=== PATIENT | female | born 1980 | race Caucasian/White ===

== ENCOUNTER → 2020-02-26 | Outpatient (CLI) | payer OTHER ==
[2020-02-27 15:19] LABS: Adenovirus F 40/41 Not Detected (NOT DETECT); Astrovirus Not Detected (NOT DETECT); Campylobacter Sp Detected (NOT DETECT); Cryptosporidium Not Detected (NOT DETECT); Cyclospora Cayetanensis Not Detected (NOT DETECT); E. Coli O157 Not Detected (NOT DETECT); Entamoeba Histolytica Not Detected (NOT DETECT); Enteroaggregative E. coli-EAEC Not Detected (NOT DETECT); Enteropathogenic E. coli-EPEC Not Detected (NOT DETECT); Enterotoxigenic E. coli-ETEC Not Detected (NOT DETECT); Giardia Lamblia Not Detected (NOT DETECT); Norovirus GI/GII Not Detected (NOT DETECT); Plesiomonas Shigelloides Not Detected (NOT DETECT); Rotavirus A Not Detected (NOT DETECT); Salmonella Sp Not Detected (NOT DETECT); Sapovirus Not Detected (NOT DETECT); Shiga Toxin-prod E. coli-STEC Not Detected (NOT DETECT); Shigella/Enteroin E. coli-EIEC Not Detected (NOT DETECT); Vibrio Cholerae Not Detected (NOT DETECT); Vibrio Sp Not Detected (NOT DETECT); Yersinia Enterocolitica Not Detected (NOT DETECT)
== END | disposition home or self-care (01) ==
LOC: LAB 12:27 → LAB SHORT 12:27
PROVIDERS: Physician Assistant
DX: R10.13 Epigastric pain (principal)
CPT/HCPCS: 0097U; 87177; 87209; 87338

== ENCOUNTER → 2020-02-27 | Outpatient (CLI) | payer OTHER ==
[2020-02-27 13:46] LABS: Anion Gap 7 mmol/L (6-16); Blood Urea Nitrogen 14 mg/dL (8-24); Bun/Creatinine Ratio 21.3 (12.0-20.0); CO2, Blood 25 mmol/L (21-32); Calcium, Blood 8.2 mg/dL (8.5-10.1); Chloride, Blood 107 mmol/L (98-108); Creatinine, Blood 0.66 mg/dL (0.40-1.00); Glomerular Filtration Rate >60 (60-); Glucose, Blood 103 mg/dL (70-99); Potassium, Blood 4.1 mmol/L (3.5-5.5); Sodium, Blood 139 mmol/L (136-145)
== END | disposition home or self-care (01) ==
LOC: LAB SHORT 12:25 → LAB 12:25
PROVIDERS: Physician Assistant
DX: E87.6 Hypokalemia (principal)
CPT/HCPCS: 80048

== ENCOUNTER 2020-09-25 12:46 | Day surgery (SDC) | payer OTHER ==
[2020-09-24 10:02] LABS: BASOPHILS ABSOLUTE AUTO 0.04 K/mm3 (0.00-0.23); BASOPHILS PERCENT AUTO 0 % (0-2); EOSINOPHILS ABSOLUTE AUTO 0.01 K/mm3 (0.00-0.68); EOSINOPHILS PERCENT AUTO 0 % (0-6); Hematocrit 39.2 % (33.0-51.0); IMMATURE GRAN ABSOLUTE AUTO 0.03 K/mm3 (0.00-0.10); IMMATURE GRAN PERCENT AUTO 0 % (0-1); LYMPHOCYTES ABSOLUTE AUTO 2.56 K/mm3 (0.84-5.20); LYMPHOCYTES PERCENT AUTO 26 % (21-46); MONOCYTES ABSOLUTE AUTO 0.48 K/mm3 (0.16-1.47); MONOCYTES PERCENT AUTO 5 % (4-13); Mean Corpuscular HGB 26.3 pg (26.0-34.0); Mean Corpuscular HGB Conc 30.6 g/dL (31.5-36.5); Mean Corpuscular Volume 86 fL (80-100); Mean Platelet Volume 9.8 fL (9.1-12.4); NEUTROPHILS ABSOLUTE AUTO 6.81 K/mm3 (1.96-9.15); NEUTROPHILS PERCENT AUTO 69 % (41-73); Platelet Count 371 K/mm3 (150-400); RDW Coefficient Variation 14.2 % (11.7-14.2); Red Blood Cell Count 4.56 M/mm3 (3.80-5.20); White Blood Cell Count 9.93 K/mm3 (4.00-11.30)
[~2020-09-25] VITALS: Ht 160 cm; Wt 75.4 kg
[~2020-09-25 12:46] MED LIST: DESI25 PO; OMEP20ER; PROM12.5S
--- NOTE | 2020-09-25 13:59 | NUR ---
Ambulatory in Day Surgery History, Chart, Medications and Allergies reviewed before start of procedure. Lungs clear T/O to Auscultation. Pre-Op teaching done. Pt verbalizes understanding.
--- NOTE | 2020-09-25 18:53 | NUR ---
arrival to unit PT ARRIVED TO UNIT AT APPROX 1820 FROM [facility]. PT SLID TO BED USING SLID SHEET. PT [id number]. SATS >95% ON RA. 4 LAP SITES CDI, SLIGHT REDNESS AROUND. ORQUIDEA PAD IN PLACE, NO DISCHARGE SEEN. PT TOLERATING PO WITH NO NAUSEA. GIVEN PO PAIN MEDS WITH ZOFRAN. WILL HAND OFF TO ONCOMING NURSE.
--- NOTE | 2020-09-26 04:35 | NUR ---
SHIFT SUMMARY PT IS A/O X4. AMBULATING WITH SBA; HAS AMBULATED IN HALLWAY THIS SHIFT. TOLERATING PO INTAKE. HAS HAD SOME NAUSEA OVERNIGHT; MED PRN. PAIN MANAGED WITH NORCO AND DILAUDED FOR BREAKTHROUGH PAIN PRN. PT HAS HAD MINIMAL BLEEDING OVERNIGHT. ORQUIDEA PAD IN PLACE. HEAT PAD PROVIDED FOR COMFORT. IV FLUIDS INFUSING PER ORDERS OVERNIGHT. WELLINGTON IN PLACE, PATENT, STAT LOCK ON OVERNIGHT. PT RESTING IN BED WITH CALL LIGHT IN REACH.
[2020-09-26 05:13] LABS: BASOPHILS ABSOLUTE AUTO 0.01 K/mm3 (0.00-0.23); BASOPHILS PERCENT AUTO 0 % (0-2); EOSINOPHILS PERCENT AUTO 0 % (0-6); Hematocrit 39.2 % (33.0-51.0); Hemoglobin 12.5 g/dL (11.5-16.0); IMMATURE GRAN ABSOLUTE AUTO 0.03 K/mm3 (0.00-0.10); IMMATURE GRAN PERCENT AUTO 0 % (0-1); LYMPHOCYTES ABSOLUTE AUTO 1.63 K/mm3 (0.84-5.20); LYMPHOCYTES PERCENT AUTO 15 % (21-46); MONOCYTES ABSOLUTE AUTO 0.64 K/mm3 (0.16-1.47); MONOCYTES PERCENT AUTO 6 % (4-13); Mean Corpuscular HGB 27.3 pg (26.0-34.0); Mean Corpuscular HGB Conc 31.9 g/dL (31.5-36.5); Mean Corpuscular Volume 86 fL (80-100); Mean Platelet Volume 9.6 fL (9.1-12.4); NEUTROPHILS ABSOLUTE AUTO 8.81 K/mm3 (1.96-9.15); NEUTROPHILS PERCENT AUTO 79 % (41-73); Platelet Count 377 K/mm3 (150-400); RDW Coefficient Variation 14.5 % (11.7-14.2); RDW Standard Deviation 44.8 fL (35.1-46.3); Red Blood Cell Count 4.58 M/mm3 (3.80-5.20); White Blood Cell Count 11.12 K/mm3 (4.00-11.30)
--- NOTE | 2020-09-26 06:35 | NUR ---
ELIZ RANGEL'Raymundo AT [id number].
--- NOTE | 2020-09-26 07:50 | NUR ---
pt oob to bathroom to void no hat on bathroom pt stated no difficulty scant vag bleeding no flatus pt has small amt of bruising to dermabond sites
--- NOTE | 2020-09-26 12:16 | NUR ---
wonderly by to see pt ok to discharge home
[2020-09-26] MEDS ORDERED: IBU800 MG PO (12:25)
[2020-09-26] MEDS ORDERED: HYDROCODONE-AC1 EA10 PO (12:25)
[2020-09-26] MEDS ORDERED: PROM25 PO (12:27)
[2020-09-26] MEDS ORDERED: DOCU100 PO (12:27)
[2020-09-26] MEDS ORDERED: DULCOLAX400 MG/51 PO (12:28)
--- NOTE | 2020-09-26 13:47 | NUR ---
wc escort to car no acute changes rx given
== END 2020-09-26 13:45 | disposition home or self-care (01) ==
LOC: ORSCMMR 12:46 → SURS 18:09
PROVIDERS: Obstetrics & Gynecology
PROC: 0UT94ZZ Resection of Uterus, Percutaneous Endoscopic Approach (ICD-10-PCS; principal; 2020-09-25 14:30)
PROC: 0UT14ZZ Resection of Left Ovary, Percutaneous Endoscopic Approach (ICD-10-PCS; principal; 2020-09-25 14:30)
PROC: 0UT74ZZ Resection of Bilateral Fallopian Tubes, Percutaneous Endoscopic Approach (ICD-10-PCS; principal; 2020-09-25 14:30)
DX: N92.0 Excessive and frequent menstruation with regular cycle (principal); N85.2 Hypertrophy of uterus; D25.9 Leiomyoma of uterus, unspecified; G43.101 Migraine with aura, not intractable, with status migrainosus; N94.6 Dysmenorrhea, unspecified; N94.10 Unspecified dyspareunia; N80.0 Endometriosis of uterus; J45.909 Unspecified asthma, uncomplicated; Z79.899 Other long term (current) drug therapy
CPT/HCPCS: 36415; 84702; 85025; 86850; 86900; 86901; 88307; A9270; J0360; J0690; J1100; J1170; J1885; J2250; J2270; J2405; J2704; J3010; J7120